=== PATIENT | female | born 1955 | race Caucasian/White ===

== ENCOUNTER 2016-11-13 13:00 | Emergency (ER) | payer OTHER ==
[2016-11-13 14:42] LABS: HEMOGLOBIN 11.5 gm/dl (12.3-15.3); RED BLOOD COUNT 3.99 M/UL (4.00-5.10); WHITE BLOOD COUNT 4.9 K/UL (4.5-11.0)
[2016-11-13 15:22] LABS: BUN/CREATININE RATIO 14 (0-10)
== END 2016-11-13 15:30 | disposition home or self-care (01) ==
LOC: ER1 13:00
PROVIDERS: Physician Assistant
DX: J18.9 Pneumonia, unspecified organism (principal); I10 Essential (primary) hypertension; E11.9 Type 2 diabetes mellitus without complications; Z79.84 Long term (current) use of oral hypoglycemic drugs; I48.91 Unspecified atrial fibrillation; Z95.0 Presence of cardiac pacemaker; Z88.6 Allergy status to analgesic agent; Z79.899 Other long term (current) drug therapy
CPT/HCPCS: 36415; 71010; 80053; 81001; 82550; 82553; 83874; 84484; 85025; 87040; 93005; 99284

== ENCOUNTER 2016-11-26 11:47 | Emergency (ER) | payer OTHER | END 2016-11-26 12:47 | disposition home or self-care (01) | LOC: ER1 11:47 | DX: B02.9 Zoster without complications (principal); E11.9 Type 2 diabetes mellitus without complications; I10 Essential (primary) hypertension; Z95.0 Presence of cardiac pacemaker; Z79.84 Long term (current) use of oral hypoglycemic drugs; Z79.4 Long term (current) use of insulin | CPT/HCPCS: 99282 ==

== ENCOUNTER 2020-06-05 14:54 | Emergency (ER) | payer MEDICARE, OTHER ==
[~2020-06-05 14:54] MED LIST: AUGMENTIN 875-1 EACH PO; BACTRIM DS TAB1 EACH PO; CEFUROXIME500 MG PO; CITRATE OF MAG296 ML PO; CLEOCIN 150MG150 MG PO; COLACE100 MG PO; COZAAR 50MG TAB50 MG PO; DELSYM30 MG/5 ML PO; DILT-XR180 MG PO; ECOTRIN81 MG PO; ELIQUIS 5 MG TAB5 MG PO; GLUCOPHAGE 500500 MG PO; GLUCOPHAGE500 MG PO; GLUCOTROL XL 22.5 MG PO; HYDROCODON-ACE1 EAC4 PO; HYDROXYZINE HCL10 MG PO; KEFLEX CAP 500500 MG PO; MACROBID 100 M100 M1 PO; MEDROL4 MG PO; NEURONTIN 100100 MG PO; OMEPRAZOLE20 MG PO; PROVENTIL HFA6.7 GM INH; PYRIDIUM200 MG PO; ROBITUSSIN AC480 ML PO; TESSALON PERLE100 MG PO; VIBRAMYCIN 100100 MG PO; VITAMIN D250000 UNIT PO; VOLTAREN EC 5050 MG PO; Voltaren Gel 1% TOP; ZOFRAN ODT 4 MG4 MG PO; ZOFRAN4 MG PO
[2020-08-09] MEDS ORDERED: COZAAR100 MG PO (13:29)
[2020-08-09] MEDS ORDERED: LOPRESSOR 25 MG25 MG PO (13:31)
[2020-08-09] MEDS ORDERED: HYDROCHLOROTH12.5 MG PO (17:45)
== END 2020-06-05 15:25 | disposition home or self-care (01) ==
LOC: ER1 14:54
DX: Z48.817 Encounter for surgical aftercare following surgery on the skin and subcutaneous tissue (principal); E11.9 Type 2 diabetes mellitus without complications; I10 Essential (primary) hypertension; J44.9 Chronic obstructive pulmonary disease, unspecified; Z79.84 Long term (current) use of oral hypoglycemic drugs; Z88.2 Allergy status to sulfonamides
CPT/HCPCS: 99282

== ENCOUNTER 2020-06-26 13:41 | Observation (INO) | payer MEDICARE, OTHER ==
[~2020-06-26] VITALS: Ht 160 cm; Wt 90.7 kg
[2020-06-26 16:35] LABS: HEMOGLOBIN 13.4 gm/dl (12.3-15.3); RED BLOOD COUNT 4.46 M/UL (4.00-5.10); WHITE BLOOD COUNT 5.6 K/UL (4.5-11.0)
[2020-06-26 17:09] LABS: BUN/CREATININE RATIO 13 (0-10)
[2020-06-26] MEDS ORDERED: BYDUREON P2 MG/0.65 SQ (17:43)
[2020-06-26] MEDS ORDERED: NEURONTIN600 MG PO (17:44)
[2020-06-26] MEDS ORDERED: GLUCOTROL 10 MG10 MG PO (17:44)
[2020-06-26] MEDS ORDERED: ZANAFLEX4 M1 PO (17:45)
[2020-06-27 02:14] LABS: HEMOGLOBIN 12.4 gm/dl (12.3-15.3); RED BLOOD COUNT 4.13 M/UL (4.00-5.10); WHITE BLOOD COUNT 5.8 K/UL (4.5-11.0)
[2020-06-27 08:54] LABS: BUN/CREATININE RATIO 18 (0-10)
[2020-08-09] MEDS ORDERED: COZAAR100 MG PO (13:29)
[2020-08-09] MEDS ORDERED: LOPRESSOR 25 MG25 MG PO (13:31)
[2020-08-09] MEDS ORDERED: HYDROCHLOROTH12.5 MG PO (17:45)
== END 2020-06-28 13:48 | disposition home or self-care (01) ==
LOC: ER1 13:41 → MED SURG 4 17:32 → CDU 17:32 → MED SURG 4 18:29
PROVIDERS: Emergency Medicine; Physician Assistant; ADMIT Internal Medicine
DX: I48.20 Chronic atrial fibrillation, unspecified (principal); R10.32 Left lower quadrant pain; I10 Essential (primary) hypertension; I25.10 Atherosclerotic heart disease of native coronary artery without angina pectoris; I49.5 Sick sinus syndrome; I08.1 Rheumatic disorders of both mitral and tricuspid valves; E11.65 Type 2 diabetes mellitus with hyperglycemia; G47.33 Obstructive sleep apnea (adult) (pediatric); E78.5 Hyperlipidemia, unspecified; E66.01 Morbid (severe) obesity due to excess calories; Z23 Encounter for immunization; Z79.01 Long term (current) use of anticoagulants; Z79.84 Long term (current) use of oral hypoglycemic drugs; Z79.51 Long term (current) use of inhaled steroids; Z79.899 Other long term (current) drug therapy; Z88.8 Allergy status to other drugs, medicaments and biological substances; Z95.0 Presence of cardiac pacemaker; Z90.710 Acquired absence of both cervix and uterus; Z20.822 Contact with and (suspected) exposure to COVID-19; Z85.42 Personal history of malignant neoplasm of other parts of uterus
CPT/HCPCS: 36415; 71045; 80053; 81001; 82550; 82553; 82962; 83605; 83690; 84484; 85025; 85610; 87040; 90471; 93005; 94640; 94664; 94760; 96372; 96374; 96376; 99285; G0378; J2405; J7030; U0002

== ENCOUNTER 2020-07-12 13:22 | Emergency (ER) | payer MEDICARE, OTHER ==
[~2020-07-12 13:22] MED LIST changes: +BYDUREON P2 MG/0.65 SQ; +GLUCOTROL 10 MG10 MG PO; +NEURONTIN600 MG PO; +ZANAFLEX4 M1 PO
[2020-08-09] MEDS ORDERED: COZAAR100 MG PO (13:29)
[2020-08-09] MEDS ORDERED: LOPRESSOR 25 MG25 MG PO (13:31)
[2020-08-09] MEDS ORDERED: HYDROCHLOROTH12.5 MG PO (17:45)
== END 2020-07-12 15:33 | disposition home or self-care (01) ==
LOC: ER1 13:22
DX: E11.40 Type 2 diabetes mellitus with diabetic neuropathy, unspecified (principal); R11.0 Nausea; I10 Essential (primary) hypertension; J44.9 Chronic obstructive pulmonary disease, unspecified; Z95.0 Presence of cardiac pacemaker; Z79.4 Long term (current) use of insulin; Z88.6 Allergy status to analgesic agent
CPT/HCPCS: 99283

== ENCOUNTER → 2020-07-17 | Outpatient (CLI) | payer MEDICARE, OTHER ==
[~2020-07-17] MED LIST changes: +ADVAIR 500-501 EACH INH; +COZAAR100 MG PO; +HYDROCHLOROTH12.5 MG PO; +LIPITOR40 MG PO; +LOPRESSOR 25 MG25 MG PO; +PERCOCET 7.5-31 EACH PO
== END ==
LOC: KOH-I 10:00
DX: R10.32 Left lower quadrant pain (principal)
CPT/HCPCS: 74176

== ENCOUNTER 2020-07-18 15:34 | Emergency (ER) | payer MEDICARE, OTHER ==
[~2020-07-18 15:34] MED LIST changes: -ADVAIR 500-501 EACH INH; -COZAAR100 MG PO; -HYDROCHLOROTH12.5 MG PO; -LIPITOR40 MG PO; -LOPRESSOR 25 MG25 MG PO; -PERCOCET 7.5-31 EACH PO
[2020-07-18 16:54] LABS: BUN/CREATININE RATIO 18 (0-10)
[2020-08-09] MEDS ORDERED: COZAAR100 MG PO (13:29)
[2020-08-09] MEDS ORDERED: LOPRESSOR 25 MG25 MG PO (13:31)
[2020-08-09] MEDS ORDERED: HYDROCHLOROTH12.5 MG PO (17:45)
== END 2020-07-18 18:31 | disposition home or self-care (01) ==
LOC: ER1 15:34
PROVIDERS: Family Medicine
DX: R25.3 Fasciculation (principal); R23.8 Other skin changes; E11.65 Type 2 diabetes mellitus with hyperglycemia; I48.91 Unspecified atrial fibrillation; E11.40 Type 2 diabetes mellitus with diabetic neuropathy, unspecified; I10 Essential (primary) hypertension; J44.9 Chronic obstructive pulmonary disease, unspecified; E78.5 Hyperlipidemia, unspecified; Z79.82 Long term (current) use of aspirin; Z95.0 Presence of cardiac pacemaker; Z88.6 Allergy status to analgesic agent
CPT/HCPCS: 80048; 82962; 83735; 99283

== ENCOUNTER 2020-08-31 10:05 | Observation (INO) | payer MEDICARE, OTHER ==
[~2020-08-31] VITALS: Ht 160 cm; Wt 95.3 kg
[~2020-08-31 10:05] MED LIST changes: +COZAAR100 MG PO; +HYDROCHLOROTH12.5 MG PO; +LOPRESSOR 25 MG25 MG PO
[2020-08-31 10:48] LABS: HEMOGLOBIN 12.1 gm/dl (12.3-15.3); RED BLOOD COUNT 4.05 M/UL (4.00-5.10); WHITE BLOOD COUNT 6.4 K/UL (4.5-11.0)
[2020-08-31 11:20] LABS: BUN/CREATININE RATIO 14 (0-10)
[2020-08-31] MEDS ORDERED: PERCOCET 7.5-31 EACH PO (15:33)
[2020-08-31] MEDS ORDERED: ADVAIR 500-501 EACH INH (17:42)
--- NOTE | 2020-08-31 19:39 | NUR ---
CALLED PROVIDER FOR MEDS TO BE RECONSILED. DR. LÓPEZ ASK TO DO IT OVER THE PHONE AND I CONTINUED OR HELD PER DR. LÓPEZ
[2020-08-31] MEDS ORDERED: LIPITOR40 MG PO (19:46)
[2020-09-01 03:34] LABS: HEMOGLOBIN 11.6 gm/dl (12.3-15.3); RED BLOOD COUNT 3.96 M/UL (4.00-5.10); WHITE BLOOD COUNT 4.9 K/UL (4.5-11.0)
[2020-09-01 03:51] LABS: BUN/CREATININE RATIO 11 (0-10)
== END 2020-09-01 13:56 | disposition home or self-care (01) ==
LOC: ER1 10:05 → M/S 12:39 → CDU 12:39 → M/S 15:00
PROVIDERS: Emergency Medicine; Physician Assistant Medical; ADMIT Internal Medicine
DX: R07.89 Other chest pain (principal); I25.10 Atherosclerotic heart disease of native coronary artery without angina pectoris; I48.0 Paroxysmal atrial fibrillation; I49.5 Sick sinus syndrome; I10 Essential (primary) hypertension; E78.5 Hyperlipidemia, unspecified; E11.40 Type 2 diabetes mellitus with diabetic neuropathy, unspecified; E66.01 Morbid (severe) obesity due to excess calories; K22.70 Barrett's esophagus without dysplasia; K21.9 Gastro-esophageal reflux disease without esophagitis; G47.33 Obstructive sleep apnea (adult) (pediatric); D64.9 Anemia, unspecified; Z87.891 Personal history of nicotine dependence; Z95.0 Presence of cardiac pacemaker; Z68.37 Body mass index [BMI] 37.0-37.9, adult; Z98.890 Other specified postprocedural states; Z99.89 Dependence on other enabling machines and devices; Z82.49 Family history of ischemic heart disease and other diseases of the circulatory system; Z88.8 Allergy status to other drugs, medicaments and biological substances; Z79.01 Long term (current) use of anticoagulants; Z79.84 Long term (current) use of oral hypoglycemic drugs; Z79.899 Other long term (current) drug therapy; Z20.822 Contact with and (suspected) exposure to COVID-19
CPT/HCPCS: 36415; 71045; 80048; 80053; 82550; 82553; 82962; 83735; 83874; 83880; 84484; 85025; 85027; 93005; 96372; 96374; 99285; G0378; U0002

== ENCOUNTER 2021-01-23 13:34 | Emergency (ER) | payer MEDICARE, OTHER ==
[~2021-01-23] VITALS: Ht 160 cm; Wt 99.8 kg
[~2021-01-23 13:34] MED LIST changes: +ADVAIR 500-501 EACH INH; +LIPITOR40 MG PO; +PERCOCET 7.5-31 EACH PO
[2021-01-23 14:25] LABS: HEMOGLOBIN 14.1 gm/dl (12.3-15.3); RED BLOOD COUNT 4.82 M/UL (4.00-5.10)
[2021-01-23 16:34] LABS: BUN/CREATININE RATIO 9 (0-10)
[2021-01-23] MEDS ORDERED: ADULT TUSS100 MG/5 M PO (18:31)
[2021-01-23] MEDS ORDERED: VENTOLIN HFA 66.7 GM INH (18:31)
== END 2021-01-23 19:05 | disposition home or self-care (01) ==
LOC: ER1 13:34
PROVIDERS: Physician Assistant Medical
DX: Z23 Encounter for immunization (principal); U07.1 COVID-19; E78.5 Hyperlipidemia, unspecified; E11.9 Type 2 diabetes mellitus without complications; J44.9 Chronic obstructive pulmonary disease, unspecified; I10 Essential (primary) hypertension; Z90.49 Acquired absence of other specified parts of digestive tract; Z90.89 Acquired absence of other organs; Z90.710 Acquired absence of both cervix and uterus; Z88.6 Allergy status to analgesic agent
CPT/HCPCS: 71045; 80053; 83605; 84484; 85025; 93005; 99285; M0243

== ENCOUNTER 2021-06-13 17:15 | Emergency (ER) | payer MEDICARE, OTHER ==
[~2021-06-13 17:15] MED LIST changes: +ADULT TUSS100 MG/5 M PO; +VENTOLIN HFA 66.7 GM INH
[2021-06-13 18:17] LABS: HEMOGLOBIN 13.1 gm/dl (12.3-15.3); RED BLOOD COUNT 4.34 M/UL (4.00-5.10); WHITE BLOOD COUNT 10.4 K/UL (4.5-11.0)
[2021-06-13 18:46] LABS: BUN/CREATININE RATIO 14 (0-10)
[2021-06-13] MEDS ORDERED: ZITHROMAX250 MG PO (21:12)
== END 2021-06-13 21:38 | disposition home or self-care (01) ==
LOC: ER1 17:15
PROVIDERS: Physician Assistant
DX: J06.9 Acute upper respiratory infection, unspecified (principal); I11.9 Hypertensive heart disease without heart failure; R06.00 Dyspnea, unspecified; I25.2 Old myocardial infarction; E11.9 Type 2 diabetes mellitus without complications; E78.5 Hyperlipidemia, unspecified; Z20.822 Contact with and (suspected) exposure to COVID-19
CPT/HCPCS: 0240U; 36600; 71045; 80053; 82550; 82553; 82803; 83605; 84484; 85025; 87040; 93005; 94664; 94760; 96374; 96375; 99285; J0696; J1100

== ENCOUNTER 2021-09-03 11:40 | Inpatient (IN) | payer MEDICARE, OTHER ==
[~2021-09-03] VITALS: Ht 160 cm; Wt 92.8 kg
[~2021-09-03 11:40] MED LIST changes: -BYDUREON P2 MG/0.65 SQ; -GLUCOTROL 10 MG10 MG PO; -VITAMIN D250000 UNIT PO; +ZITHROMAX250 MG PO
[2021-09-03 12:55] LABS: HEMOGLOBIN 13.2 gm/dl (12.3-15.3); RED BLOOD COUNT 4.52 M/UL (4.00-5.10); WHITE BLOOD COUNT 6.2 K/UL (4.5-11.0)
[2021-09-03 13:33] LABS: BUN/CREATININE RATIO 9 (0-10)
[2021-09-03] MEDS ORDERED: PERCOCET 5/325 T1 EA PO (15:55)
[2021-09-03] MEDS ORDERED: GABAPENTIN800 MG PO (16:00)
[2021-09-03] MEDS ORDERED: COZAAR 50MG TAB50 MG PO (16:02)
[2021-09-03] MEDS ORDERED: TIZANIDINE HCL4 MG PO (16:04)
[2021-09-03] MEDS ORDERED: BYDUREON SC (17:43)
[2021-09-03] MEDS ORDERED: GLUCOTROL10 MG PO (17:44)
[2021-09-03] MEDS ORDERED: DRISDOL1250 MCG PO (17:51)
[2021-09-04 01:28] LABS: HEMOGLOBIN 11.5 gm/dl (12.3-15.3)
[2021-09-04 01:37] LABS: RED BLOOD COUNT 3.93 M/UL (4.00-5.10); WHITE BLOOD COUNT 4.3 K/UL (4.5-11.0)
[2021-09-04 01:49] LABS: BUN/CREATININE RATIO 12 (0-10)
[2021-09-06 02:02] LABS: HEMOGLOBIN 11.1 gm/dl (12.3-15.3); RED BLOOD COUNT 3.77 M/UL (4.00-5.10); WHITE BLOOD COUNT 5.3 K/UL (4.5-11.0)
[2021-09-06] MEDS ORDERED: DOXYCYCLINE HY100 M2 PO (08:31)
[2021-09-06] MEDS ORDERED: ISOSORBIDE MONO30 MG PO (08:31)
[2021-09-06] MEDS ORDERED: ASPIRIN EC81 MG PO (08:45)
== END 2021-09-06 10:15 | disposition short-term general hospital (02) | DRG 309 ==
LOC: ER1 11:40 → PROG CARE 15:01 → CDU 15:01 → PROG CARE 16:44
PROVIDERS: Internal Medicine; Physician Assistant; ADMIT Internal Medicine
PROC: B24BZZZ Ultrasonography of Heart with Aorta (ICD-10-PCS; principal; 2021-09-04)
DX: T82.191A Other mechanical complication of cardiac pulse generator (battery), initial encounter (principal); I48.20 Chronic atrial fibrillation, unspecified; F11.20 Opioid dependence, uncomplicated; Z20.822 Contact with and (suspected) exposure to COVID-19; I31.3 Pericardial effusion (noninflammatory); Y83.9 Surgical procedure, unspecified as the cause of abnormal reaction of the patient, or of later complication, without mention of misadventure at the time of the procedure; I25.10 Atherosclerotic heart disease of native coronary artery without angina pectoris; I08.3 Combined rheumatic disorders of mitral, aortic and tricuspid valves; E78.5 Hyperlipidemia, unspecified; K21.9 Gastro-esophageal reflux disease without esophagitis; I49.5 Sick sinus syndrome; G47.33 Obstructive sleep apnea (adult) (pediatric); R42 Dizziness and giddiness; I10 Essential (primary) hypertension; E55.9 Vitamin D deficiency, unspecified; G89.29 Other chronic pain; E11.40 Type 2 diabetes mellitus with diabetic neuropathy, unspecified; I27.20 Pulmonary hypertension, unspecified; I48.0 Paroxysmal atrial fibrillation; D63.1 Anemia in chronic kidney disease; I16.0 Hypertensive urgency; Z96.651 Presence of right artificial knee joint; R07.89 Other chest pain; J40 Bronchitis, not specified as acute or chronic; Z95.0 Presence of cardiac pacemaker; Z79.01 Long term (current) use of anticoagulants; Z79.4 Long term (current) use of insulin; Z79.82 Long term (current) use of aspirin; Z91.19 Patient's noncompliance with other medical treatment and regimen; Z99.81 Dependence on supplemental oxygen; Z85.42 Personal history of malignant neoplasm of other parts of uterus; Z90.49 Acquired absence of other specified parts of digestive tract; Z90.710 Acquired absence of both cervix and uterus; Z88.6 Allergy status to analgesic agent; Z82.49 Family history of ischemic heart disease and other diseases of the circulatory system; Z82.0 Family history of epilepsy and other diseases of the nervous system; Z87.891 Personal history of nicotine dependence
CPT/HCPCS: ECHO; 36415; 71045; 80048; 80053; 82550; 82553; 82962; 83735; 83880; 84484; 85025; 85027; 92526; 92610; 93005; 93306; 94640; 94664; 94760; 96374; 96375; 97161; 99284; G0378; J0696; J1940; J2785; U0002

== ENCOUNTER 2021-10-15 13:36 | Emergency (ER) | payer MEDICARE, OTHER ==
[~2021-10-15 13:36] MED LIST changes: +ASPIRIN EC81 MG PO; +BYDUREON SC; +DOXYCYCLINE HY100 M2 PO; +DRISDOL1250 MCG PO; +GABAPENTIN800 MG PO; +GLUCOTROL10 MG PO; +ISOSORBIDE MONO30 MG PO; +PERCOCET 5/325 T1 EA PO; +TIZANIDINE HCL4 MG PO
[2021-10-15] MEDS ORDERED: CEPHALEXIN500 M1 PO (16:04)
== END 2021-10-15 16:15 | disposition home or self-care (01) ==
LOC: ER1 13:36
DX: L02.411 Cutaneous abscess of right axilla (principal); E11.9 Type 2 diabetes mellitus without complications; Z79.84 Long term (current) use of oral hypoglycemic drugs; Z88.6 Allergy status to analgesic agent; Z95.0 Presence of cardiac pacemaker
CPT/HCPCS: 10060; 99282

== ENCOUNTER 2021-10-30 14:11 | Emergency (ER) | payer OTHER, MEDICARE ==
[~2021-10-30 14:11] MED LIST changes: +CEPHALEXIN500 M1 PO
== END 2021-10-30 16:38 | disposition home or self-care (01) ==
LOC: ER1 14:11
DX: S16.1XXA Strain of muscle, fascia and tendon at neck level, initial encounter (principal); S39.012A Strain of muscle, fascia and tendon of lower back, initial encounter; S09.90XA Unspecified injury of head, initial encounter; E04.1 Nontoxic single thyroid nodule; M50.30 Other cervical disc degeneration, unspecified cervical region; M51.36 Other intervertebral disc degeneration, lumbar region; M51.34 Other intervertebral disc degeneration, thoracic region; V49.9XXA Car occupant (driver) (passenger) injured in unspecified traffic accident, initial encounter; Y92.410 Unspecified street and highway as the place of occurrence of the external cause
CPT/HCPCS: 70450; 72125; 72128; 72131; 81001; 87086; 99284

== ENCOUNTER 2022-01-12 19:11 | Emergency (ER) | payer MEDICARE, OTHER | END 2022-01-13 03:52 | disposition home or self-care (01) | LOC: ER1 19:11 | DX: S93.402A Sprain of unspecified ligament of left ankle, initial encounter (principal); I11.9 Hypertensive heart disease without heart failure; E11.9 Type 2 diabetes mellitus without complications; E78.5 Hyperlipidemia, unspecified; Z88.6 Allergy status to analgesic agent; W19.XXXA Unspecified fall, initial encounter; X50.9XXA Other and unspecified overexertion or strenuous movements or postures, initial encounter | CPT/HCPCS: 73610; 73630; 99283 ==